=== PATIENT | male | born 1970 | race Two or more races ===

== ENCOUNTER 2025-03-23 22:25 | Emergency (ER) | payer OTHER ==
[~2025-03-23] VITALS: Ht 165.1 cm; Wt 72.7 kg
--- NOTE | 2025-03-23 23:11 | ED.PDOC ---
History of Present Illness HPI Comments 54-year-old male with a past medical history of [id number] type 2 diabetes mellitus (noncompliant to medication), has come to the ER with complaints of right-sided fac weakness. Patient reports that returned from [place] 3 days ago to [place]. The next day/Saturday he noted that his right eye was tearing, and he had a right temporal headache which was radiating to the back of his head, 6/10 in intensity, which progressed to right facial weakness, rendering him unable to close his right eye properly, difficulty in eating with his tongue deviating towards the left when he stuck it out. Patient tried acupuncture the next day, which he believes slightly helped him but did not resolve the facial features that had developed. Yesterday/Saturday patient went to a walk-in clinic and the doctor suggested he visit the ER if symptoms worsened, prompting the patient to visit today. Patient denies any CVA events in the past, chest pain, weakness in any extremity, slurring of speech, shortness of breaths, history of hypertension or any other symptoms. On initial assessment, patient is A&O x4, on physical examination power is 5/5 on all extremities, there is right-sided facial drooping, patient is unable to shut his right eye properly, while raising his eyebrows there is no forehead wrinkling on the right side, when patient is smiles right side of the face does not form a smile. Chief Complaint: Stroke Time Seen by MD: 22:45 Reviewed Notes: Nurses Notes, Medications, Allergies Allergies: Coded Allergies: NO KNOWN ALLERGIES (Unverified , 03/23/25) Home Meds Active Scripts Methylprednisolone (Medrol Dosepak) 4 Mg [place]um, 4 MG PO UD, #21 TAB UAD Prov:PATRICIA MORALES MD 03/23/25 Information Source: Patient Mode of Arrival: Ambulatory Severity: Severe Timing: Days Duration: Since onset Prehospital treatment: None Past Medical History PAST MEDICAL HISTORY: DM Surgical History (Other): Right leg Achilles tendon surgery Family History Family History: Family hx of DM Social History Smoker: Non-Smoker Alcohol: Occasionally Drugs: Denies Drug Use Lives In: Home Constitutional: denies: chills, diaphoresis, fatigue, fever, malaise, sweats, weakness, others EENTM: reports: others (Unable to shut right eye, tearing of right eye); denies: blurred vision, double vision, ear bleeding, ear discharge, ear drainage, ear pain, ear ringing, eye pain, eye redness, hearing loss, mouth pain, mouth swelling, nasal discharge, nose bleeding, nose congestion, nose pain, photophobia, tearing, throat pain, throat swelling, voice changes Respiratory: denies: cough, hemoptysis, orthopnea, SOB at rest, shortness of breath, SOB with excertion, stridor, wheezing, others Cardiovascular: denies: chest pain, dizzy spells, diaphoresis, Dyspnea on exertion, edema, irregular heart beat, left arm pain, lightheadedness, palpi tations, PND, syncope, others Gastrointestinal: reports: others (Difficulty chewing food); denies: abdomen distended, abdominal pain, blood streaked bowels, constipated, diarrhea, dysphagia, difficulty swallowing, hematemesis, melena, nausea, poor appetite, poor fluid intake, rectal bleeding, rectal pain, vomiting Genitourinary: denies: burning, dysuria, flank pain, frequency, hematuria, incontinence, penile discharge, penile sore, pain, testicle pain, testicle swelling, urgency, others Neurological: reports: others (Right-sided weakness of face); denies: dizziness, fainting, headache, left sided numbness, left sided weakness, numbness, paresthesia, pre-existing deficit, right sided numbness, right sided weakness, seizure, speech problems, tingling, tremors, weakness Musculoskeletal: denies: back pain, gout, joint pain, joint swelling, muscle pain, muscle stiffness, neck pain, others Integumetry: denies: bruises, change in color, change in hair/nails, dryness, laceration, lesions, lumps, rash, wounds, others Allergic/Immunocompromised: denies: Difficulty Healing, Frequent Infections, Hives, Itching, others Hematologic/Lymphatic: denies: anemia, blood clots, easy bleeding, easy bruising, swollen glands, others Endocrine: denies: excessive hunger, excessive sweating, excessive thirst, excessive urination, flushing, intolerance to cold, intolerance to heat, unexplained weight gain, unexplained weight loss, others Psychiatric: denies: anxiety, bipolar disorder, depression, hopeless, panic disorder, schizophrenia, sleepless, suicidal, others Physical Exam General Appearance: Mild Distress HEENT: Other (Right-sided facial weakness, unable to shut right eye properly, absence of forehead wrinkles when eyebrows raised, absence of smile on the right side, right-sided facial drooping) Neck: Non-Tender, Normal Inspection Respiratory: No Accessory Muscle Use, No Respiratory Distress, Normal Breath Sounds Cardiovascular: No Edema, No JVD, No Murmur, Regular Rate/Rhythm Breast Exam: Deferred Gastrointestinal: none, No Organomegaly, Non Tender Genitalia: Deferred Pelvic: Deferred Rectal: Deferred Extremities: Normal range of motion, Non-tender, No pedal edema, Other (Power 5/5 on all extremities, no sensory motor deficit in extremities) Neurologic: Facial Droop, Other Cerebellar Function: Normal Reflexes: Normal Skin: Normal Color Lymphatic: Other (No cervical adenopathy) Was a procedure done? Was a procedure done?: No Differential Dx Considerations may include: Flores's palsy, stroke X-Ray, Labs, Meds, VS Vital Signs Date Time Temp Pulse Resp B/P (MAP) Pulse Ox O2 Delivery O2 Flow Rate FiO2 03/23/25 22:45 Room Air* 0 21 03/23/25 22:44 98.1 73 12 152/80 (104) 98 98.1 03/23/25 22:32 97.7 71 18 142/89 97 97.7 Images Reviewed?: Images reviewed and evaluated by me Time of 1ST Reevaluation: 23:30 Reevaluation 1ST: Unchanged Patient Education/Counseling: Diagnosis, Treatment, Prognosis, Need For Follow Up Family Education/Counseling: No Family Present Comments Patient came in with right-sided facial weakness and has been diagnosed with Flores's palsy. A CT scan was done which showed 'No acute intracranial abnormality'. Patient has been prescribed Methylprednisolone 4 mg per orally for 21 days and he is to follow up with his primary care physician. Patient has been counseled regarding Flores's palsy and all questions and queries have been answered. He is stable and we are discharging him. SEPSIS Sepsis Screen Date sepsis recognized/suspect: Mar 23, 2025 Time Sepsis recognized/suspect: 2237 Recent Procedure: No On Antibiotic Therapy: No Respiratory Rate >20: No Heart Rate >90: No Temp<36 C (96.8 F) or >38.3 C: No SBP <90 or MAP <65 mmHG: No New Acute Mental Status Change: No Is the patient on CPAP, BIPAP,: No Physician Orders Head Without Contrast (03/23/25 22:55) Vital Signs Date Time Temp Pulse Resp B/P (MAP) Pulse Ox O2 Delivery O2 Flow Rate FiO2 03/23/25 22:45 Room Air* 0 21 03/23/25 22:44 98.1 73 12 152/80 (104) 98 98.1 03/23/25 22:32 97.7 71 18 142/89 97 97.7 Departure 1 Departure Time of Disposition: 00:00 Impression: Primary Impression: Flores's palsy Disposition: HOME / SELF CARE / HOMELESS Condition: Fair e-Prescriptions Methylprednisolone (Medrol Dosepak) 4 Mg N[place]um 4 MG PO UD, #21 TAB UAD Prov: PATRICIA MORALES MD 03/23/25 Discharged With: Self Critical Care Note Critical Care Time?: No Stability Stability form required: No Heart Score Heart Score: Heart Score Response (Comments) Value History N/A 0 EKG N/A 0 Age N/A 0 Risk Factors N/A 0 Troponin N/A 0 Total 0 [facility] RESIDENT Mar 23, 2025 23:10 PATRICIA MORALES MD Mar 24, 2025 00:01
[2025-03-23] MEDS ORDERED: METH4PAK PO (23:39)
--- NOTE | 2025-03-23 23:50 | DVH ---
CLINICAL HISTORY: right facial paralysis TECHNIQUE: Helical imaging carried out from skull base to vertex without intravenous contrast. This exam was performed according to our departmental dose optimization program. Up-to-date CT equipment and radiation dose reduction techniques are utilized as appropriate. CTDIVol: 51.78 mGy DLP: 726.26 mGy-cm WID: COMPARISON: None FINDINGS: Note is made of cavum septum pellucidum. The ventricles and subarachnoid spaces are normal in size and configuration. There is no midline shift or mass effect. The lopez white matter interfaces are maintained. The basal cisterns are patent. There is no evidence of acute intracranial hemorrhage or extra-axial fluid collection. The mastoid air cells and visualized paranasal sinuses are well-aerated. IMPRESSION: 1. No acute intracranial abnormality.
[2025-03-24 00:15] VITALS: BP 149/77; PULSE 68; RESP 14; TEMP 98.2; O2SAT 98
== END 2025-03-24 00:25 | disposition home or self-care (01) ==
LOC: ER 22:25
DX: G51.0 Bell's palsy (principal); I63.9 Cerebral infarction, unspecified; E11.9 Type 2 diabetes mellitus without complications
CPT/HCPCS: 70450